=== PATIENT | female | born 1975 | race Caucasian/White ===

== ENCOUNTER 2022-02-12 03:42 | Observation (INO) ==
[2022-02-12] MEDS ORDERED: ONDANSETRON INJ 2 MG/ML 2 ML VIAL IV STA (04:11)
[2022-02-12] MEDS ORDERED: SODIUM CHLORIDE 0.9% 1000ML 1,000 ML IV SCH (04:15)
[2022-02-12 04:29] LABS: Basophils # (auto) 0.04 K/uL (0-0.2); Basophils % (auto) 0.7 %; Eosinophils # (auto) 0.23 K/uL (0-0.50); Eosinophils % (auto) 4.2 %; Hematocrit (blood only) 38.4 % (34.1-44.9); Hemoglobin 12.7 g/dl (12.0-16.0); Immature Granulocytes # (auto) 0.02 K/uL (0.00-0.02); Immature Granulocytes % (auto) 0.4 %; Lymphocytes # (auto) 0.91 K/uL (1.2-3.4); Lymphocytes % (auto) 16.5 %; Mean Corpuscular Hemoglobin 30.5 pg (25.0-34.0); Mean Corpuscular Hgb Conc 33.1 g/dL (32.0-36.0); Mean Corpuscular Volume 92.1 fL (80.0-100.0); Mean Platelet Volume 11.1 fL (9.4-12.3); Monocytes # (auto) 0.33 K/uL (0.24-0.82); Neutrophils % (auto) 72.2 %; Platelet Count 214 K/uL (130-400); RDW Coefficient of Variation 12.8 % (11.5-14.5); RDW Standard Deviation 42.9 fL (36.4-46.3); Red Blood Count 4.17 M/uL (3.93-5.22); White Blood Count 5.53 K/ul (4.8-10.8)
[2022-02-12] MEDS: MoRPHine SULFATE 4 MG/ML 1 ML CARP\\VIAL IV PRN ×3 (04:32→07:13)
[2022-02-12 04:34] LABS: Appearance Urine Clear (Clear); Bacteria Urine Automated Negative (Negative); Bilirubin Urine Negative (Negative); Blood Urine Negative (Negative); Color Urine Yellow; Epithelial Cell Urine Auto >30 /lpf (0-5); Glucose Urine UA Negative (Negative); Ketones Urine Trace (Negative); Leukocyte Esterase Urine Negative (Negative); Nitrite Urine Negative (Negative); Protein Urine 1+ (Negative); RBC Urine Automated 0-4 /hpf (0-4); Specific Gravity Urine 1.028 (1.000-1.030); Urobilinogen Urine Negative (Negative); pH Urine 6.5 (4.5-7.5)
[2022-02-12 04:41] LABS: Albumin Globulin Ratio 1.4 (0.9-2); Albumin Level 4.3 gm/dl (3.4-5.0); Bilirubin,Total 0.4 mg/dl (0.2-1.0); Calcium 9.7 mg/dl (8.5-10.1); Creatinine Clr Calc Pharmacy 156.5 ml/min; Est GFR (African American) 125.1 ml/min; Potassium 3.5 mmol/L (3.5-5.1); Total Protein 7.3 gm/dl (6.0-8.3)
[2022-02-12] MEDS ORDERED: OPTIRAY 300 500mL IV ONE (05:32)
--- NOTE | 2022-02-12 08:00 | CT Scan Report ---
ABDOMEN AND PELVIS CT WITH IV CONTRAST CT DOSE: 1519.84 mGy.cm HISTORY: Acute upper abdominal pain with nausea Upper abd pain TECHNIQUE: Multiaxial CT images of the abdomen and pelvis were performed following the IV administrat ion of 87 cc of Optiray, A dose lowering technique was utilized adhering to the principles of ALARA. COMPARISON STUDY: None. FINDINGS: Clear lung bases. Mild subsegmental bibasilar atelectasis. There is no pneumatosis or pneum operitoneum. Unremarkable spleen, and right adrenal gland. Indeterminate soft tissue attenuating 1.1 cm left adrenal gland nodule on image 143. There is an ovoid cystic lesion involving the pancreatic b susan on image 141 measuring 2.5 x 1.1 cm with upstream atrophy of the pancreatic tail. No associated p ancreatic ductal dilation. Unremarkable liver with patent portal vein. The gallbladder is distended w ith wall thickening and pericholecystic edema/trace fluid. There is a subcentimeter gallstone noted n ear the gallbladder neck. 1.3 cm dependent intraluminal structure within the gallbladder may represen t sludge versus polyp. Mild wall thickening of the proximal duodenum, likely reactive. Unremarkable kidneys. There is no hydronephrosis. Decompressed urinary bladder. Hysterectomy. Aorta a nd IVC are unremarkable. No lymphadenopathy identified. Probable tiny hiatal hernia. No bowel obstruc tion. Retained enteric contrast within the terminal ileum and proximal colon. Normal appendix. Unrema rkable soft tissues. Right paracentral disc osteophyte complex calcified disc extrusion versus seques tered disc fragment noted at the T6-T7 level resulting in at least moderate central canal stenosis. A nnular disc bulge at L4-L5 is also noted with right greater than left bilateral neural foraminal narr owing. IMPRESSION: 1. Cholelithiasis with findings suggestive of acute cholecystitis. Additionally, there is suggestion of gallbladder sludge versus polyp. 2. Mild wall thickening of the proximal duodenum is likely reactive. 3. Indeterminate 2.5 cm cystic lesion of the pancreas body with upstream atrophy of the pancreatic ta il. Correlation with a nonemergent MRI of the abdomen utilizing pancreatic protocol with and without IV contrast is needed. 4. No bowel obstruction. Normal appendix. 5. Moderate central canal stenosis at T6-T7 as above. ACT 112: Negative or not required by law. The above report was generated using voice recognition software. It may contain grammatical, syntax o r spelling errors. Electronically signed by: Regan Medrano M.D. 02/12/2022 7:58 AM
--- NOTE | 2022-02-12 08:39 | Emergency Department Note ---
History of Present Illness General Chief complaint: Vomiting Stated complaint: ABDOMINAL PAIN, VOMITING Time Seen by Provider: 02/12/22 04:03 History of Present Illness Maximum Pain Intensity: 7 This is a 46-year-old female presenting to the emergency department for evaluation of epigastric abdominal pain, nausea, and vomiting for the past day. The patient is visiting the area as her is here for work. She previously lived in this area. She believes that food may be worsening her symptoms. She does have a history of section x2. She has not had fevers or chills. No chest pain, chest tightness, shortness of breath. No lower abdominal pain. She rates the discomfort a 7/10. She has not taken anything [id number] for symptoms as she is traveling. Home Medications Medication Instructions Recorded Confirmed Type Lactobacillus 25 billion 1 cap PO 02/12/22 History cell-Bifido 25 billion [id number] capsule (Women's Probiotic) ascorbic acid (vitamin C) 1,000 mg 1 cap PO 02/12/22 History capsule,extended release biotin 10,000 mcg capsule 10,000 mcg PO 02/12/22 History cholecalciferol (vitamin D3) 125 125 mcg PO DAILY 02/12/22 02/12/22 History mcg (5,000 unit) tablet (Vitamin D3) cyanocobalamin (vitamin B-12) 2,500 mcg sublingual DAILY 02/12/22 02/12/22 History 2,500 mcg sublingual tablet (Vitamin B-12) hydrochlorothiazide 50 mg tablet 50 mg PO DAILY 02/12/22 02/12/22 History lamotrigine 100 mg tablet 100 mg PO HS 02/12/22 02/12/22 History lamotrigine 250 mg tablet,extended 250 mg PO BID 02/12/22 02/12/22 History release 24 hr nutritional supplement-fiber oral ea 02/12/22 History liquid nutritional supplement-fiber oral ea 02/12/22 History liquid omeprazole 20 mg capsule,delayed 20 mg PO DAILY 02/12/22 02/12/22 History release potassium 99 mg tablet 99 mg PO DAILY 02/12/22 02/12/22 History teriflunomide 14 mg tablet 14 mg PO DAILY 02/12/22 02/12/22 History (Aubagio) acetaminophen 325 mg capsule 650 mg PO Q6H PRN fever or pain 02/13/22 Rx #30 caps Allergies Allergy/AdvReac Type Severity Reaction Status Date / Time diclofenac Allergy Severe Seizure Verified 02/12/22 11:59 loratadine [From Claritin-D] Allergy Severe Seizure Verified 02/12/22 11:59 oxycodone [From Percocet] Allergy Severe Seizure Verified 02/12/22 12:00 pseudoephedrine Allergy Severe Seizure Verified 02/12/22 11:59 [From Claritin-D] acetaminophen [From Percocet] Allergy Verified 02/12/22 12:00 Past Med/Surg History Medical History History of epilepsy Surgical History H/O section Social History Smoking Status: Never smoker Hx Alcohol Use: No Hx Substance Use: No Preferred Language: Azeri Current Living Situation: Spouse Other Information That Helps Us Care for You: No Feels Safe at Home: Yes Safety Concerns: Feels Safe At This Time Assistive Devices: Glasses Review of Systems A total of 10 systems reviewed and were otherwise negative Physical Exam Vital Signs Vital Signs - 24 hr 02/12/22 08:52 02/12/22 10:35 02/12/22 11:51 Temperature 36.5 C Temperature Source Oral Pulse Rate [Apical] 70 67 Pulse Rate [Right Finger] 71 Pulse Rhythm [Right Finger] Regular Pulse Strength [Right Finger] Normal Respiratory Rate 18 18 18 Respiratory Effort / Characteristics Non-Labored Spontaneous Non-Labored Non-Labored Spontaneous Respiratory Depth Normal Normal Normal Respiratory Pattern Regular Blood Pressure [Left Arm] 172/86 H 166/89 H 180/80 H Blood Pressure Mean [Left Arm] 114 114 113 Blood Pressure Position [Left Arm] Sitting Pulse Oximetry 98 100 99 Oxygen Delivery Method Room Air Room Air Room Air VITALS: Vitals are noted on the nurse's note and reviewed by myself. Vital signs stable. GENERAL: Well-developed, well-nourished, white female, who is in no acute distress and resting comfortably. Patient is cooperative with the examination. HEAD: Normocephalic atraumatic. HEART: Regular rate and rhythm without murmurs gallops or rubs. LUNGS: Clear to auscultation bilaterally without wheezes, rales or rhonchi. No retractions or accessory muscle use. ABDOMEN: Positive normal bowel sounds x 4. Soft with epigastric and right upper quadrant tenderness. No rebound or guarding. No CVA tenderness. MUSCULOSKELETAL: No muscle atrophy, erythema, or edema noted. Full range of motion in all extremities. Course Administered Medications Hydromorphone HCl (Hydromorphone Inj 2 Mg/Ml Syr/Vial) 2 mg IV NOW [facility] Stop: 02/12/22 14:46 Last Admin: 02/12/22 14:40 Dose: 0.25 mg Documented By: KAYE Cefoxitin Sodium (Mefoxin) 2,000 mg in 60 mls @ 100 mls/hr IV NOW ONE Stop: 02/12/22 17:50 Last Infusion: 02/12/22 21:15 Dose: 100 mls/hr Documented By: Admin: 02/12/22 18:26 Dose: 100 mls/hr Documented By: NEGIN Lamotrigine (Lamotrigine 100 Mg Tab) 100 mg PO HS [facility] Stop: 03/14/22 20:59 Last Admin: 02/12/22 23:27 Dose: 100 mg Documented By: RAJENRDA Lamotrigine (Lamotrigine 25 Mg Tab) 50 mg PO BID [facility] Stop: 03/14/22 20:59 Last Admin: 02/12/22 23:28 Dose: Not Given Documented By: RAJENDRA Miscellaneous (Order Awaiting Action - Teriflunomide [Aubagio] 14 Mg Tablet) 1 each N/A QS [facility] Stop: 03/15/22 00:00 Last Admin: 02/13/22 01:02 Dose: Not Given Documented By: RAJENDRA Ondansetron HCl (Ondansetron Inj 2 Mg/Ml 2 Ml Vial) 4 mg IV Q4H PRN PRN Reason: Nausea And Vomiting Stop: 03/14/22 16:47 Last Admin: 02/12/22 17:08 Dose: 4 mg Documented By: NEGIN Discontinued Medications Bupivacaine HCl/Epinephrine Bitart (Bupivacaine/Epinephrine 0.25% 1:200,000 30 Ml Vial) Confirm Administered Dose 30 ml .ROUTE .STK-MED ONE Stop: 02/12/22 11:50 Last Admin: 02/12/22 13:40 Dose: 30 ml Documented By: [id number] Cefazolin Sodium (Cefazolin 3000mg/72.5 Ml Bag) Confirm Administered Dose 3,000 mg IV .STK-MED ONE Stop: 02/12/22 11:36 Last Admin: 02/12/22 12:28 Dose: 3,000 mg Documented By: [id number] Fentanyl Citrate (Fentanyl Citrate 100 Mcg/2 Ml Vial) 25 mcg IV Q5M PRN PRN Reason: PACU Use Only-Pain Stop: 02/12/22 20:49 Last Admin: 02/12/22 15:26 Dose: 25 mcg Documented By: Admin: 02/12/22 14:29 Dose: 25 mcg Documented By: Admin: 02/12/22 14:22 Dose: 25 mcg Documented By: KAYE Hydromorphone HCl (Hydromorphone Inj 2 Mg/Ml Syr/Vial) Confirm Administered Dose 2 mg .ROUTE .STK-MED ONE Stop: 02/12/22 14:37 Last Admin: 02/12/22 14:53 Dose: Not Given Documented By: KAYE Sodium Chloride (Nss 1000ml) 1,000 mls @ 999 mls/hr IV .Q1H1M TAIWO Stop: 02/12/22 05:15 Last Infusion: 02/12/22 05:38 Dose: 0 mls/hr Documented By: Admin: 02/12/22 04:37 Dose: 999 mls/hr Documented By: LORENZO Lactated Ringer's (Lr) 1,000 mls @ 100 mls/hr IV .Q10H TAIWO Stop: 03/14/22 16:47 Last Infusion: 02/13/22 07:12 Dose: 0 mls/hr Documented By: Infusion: 02/13/22 05:40 Dose: 0 mls/hr Documented By: Admin: 02/13/22 05:40 Dose: 100 mls/hr Documented By: Infusion: 02/13/22 04:26 Dose: 100 mls/hr Documented By: Admin: 02/12/22 18:26 Dose: 100 mls/hr Documented By: NEGIN Ioversol (Optiray 300 500ml) 87 ml IV ONCE ONE Stop: 02/12/22 05:33 Last Admin: 02/12/22 05:35 Dose: 87 ml Documented By: CHASIDY Morphine Sulfate (Morphine Sulfate 4 Mg/Ml 1 Ml Carp\Vial) 4 mg IV Q30M PRN PRN Reason: Pain Stop: 02/26/22 04:10 Last Admin: 02/12/22 07:13 Dose: 4 mg Documented By: Admin: 02/12/22 05:06 Dose: 4 mg Documented By: Admin: 02/12/22 04:32 Dose: 4 mg Documented By: JT Ondansetron HCl (Ondansetron Inj 2 Mg/Ml 2 Ml Vial) 4 mg IV NOW STA Stop: 02/12/22 04:12 Last Admin: 02/12/22 04:32 Dose: 4 mg Documented By: JT Ondansetron HCl (Ondansetron Inj 2 Mg/Ml 2 Ml Vial) Confirm Administered Dose 4 mg .ROUTE .STK-MED ONE Stop: 02/12/22 11:51 Last Admin: 02/12/22 11:50 Dose: 4 mg Documented By: ART Medical Decision Making Differential Diagnosis Differential diagnosis: Etiologies such as biliary colic, cholecystitis, hepatitis, pancreatitis, cardiac disease, pancreatitis, gastritis, peptic ulcer disease, appendicitis, cystitis, diverticulitis, mesenteric ischemia, inflammatory bowel disease, ileus, bowel obstruction, testicular/adnexal torsion, aortic pathology, shingles, as well as others were considered Laboratory Data Result diagrams: 02/12/22 04:05 02/12/22 04:05 Lab Results 02/12/22 02/12/22 02/12/22 Range/Units 04:05 04:05 04:05 WBC 5.53 (4.8-10.8) K/ul RBC 4.17 (3.93-5.22) M/uL Hgb 12.7 (12.0-16.0) g/dl Hct 38.4 (34.1-44.9) % MCV 92.1 (80.0-100.0) fL MCH 30.5 (25.0-34.0) pg MCHC 33.1 (32.0-36.0) g/dL RDW Std Deviation 42.9 (36.4-46.3) fL RDW Coeff of Kerry 12.8 (11.5-14.5) % Plt Count 214 (130-400) K/uL MPV 11.1 (9.4-12.3) fL Immature Gran % (Auto) 0.4 % Neut % (Auto) 72.2 % Lymph % (Auto) 16.5 % Luce % (Auto) 6.0 % Eos % (Auto) 4.2 % Baso % (Auto) 0.7 % Neut # (Auto) 4.00 (1.4-6.5) K/uL Lymph # (Auto) 0.91 L (1.2-3.4) K/uL Luce # (Auto) 0.33 (0.24-0.82) K/uL Eos # (Auto) 0.23 (0-0.50) K/uL Baso # (Auto) 0.04 (0-0.2) K/uL Immature Gran # (Auto) 0.02 (0.00-0.02) K/uL Sodium 140 (136-145) mmol/L Potassium 3.5 (3.5-5.1) mmol/L Chloride 102 (98-107) mmol/L Carbon Dioxide 30 (21-32) mmol/L Anion Gap 8 (3-11) BUN 14 (6-23) mg/dl Creatinine 0.61 (0.6-1.2) mg/dl Est Cr Clr Drug Dosing 156.5 ml/min Est GFR ( Amer) 125.1 ml/min Est GFR (Non-Af Amer) 108.0 ml/min BUN/Creatinine Ratio 23.0 H (10-20) Glucose 134 H (70-99(Fasting)) mg/dl Calcium 9.7 (8.5-10.1) mg/dl Total Bilirubin 0.4 (0.2-1.0) mg/dl AST 17 (13-39) U/L ALT 15 (7-52) U/L Alkaline Phosphatase 79 (34-104) U/L Total Protein 7.3 (6.0-8.3) gm/dl Albumin 4.3 (3.4-5.0) gm/dl Globulin 3.0 (2.5-4.0) gm/dl Albumin/Globulin Ratio 1.4 (0.9-2) Lipase 7 L (11-82) U/L HCG, Qual (Negative) Urine Color Yellow Urine Appearance Clear (Clear) Urine pH 6.5 (4.5-7.5) Ur Specific [place] 1.028 (1.000-1.030) Urine Protein 1+ H (Negative) Urine Glucose (UA) Negative (Negative) Urine Ketones Trace H (Negative) Urine Blood Negative (Negative) Urine Nitrite Negative (Negative) Urine Bilirubin Negative (Negative) Urine Urobilinogen Negative (Negative) Ur Leukocyte Esterase Negative (Negative) Urine WBC (Auto) 1-5 (0-5) /hpf Urine RBC (Auto) 0-4 (0-4) /hpf U Hyaline Cast (Auto) 5-10 H (0-5) /lpf U Epithel Cells (Auto) >30 H (0-5) /lpf Urine Bacteria (Auto) Negative (Negative) SARS-CoV-2, RNA, NAAT (NEGATIVE) 02/12/22 02/12/22 Range/Units 08:11 11:13 WBC (4.8-10.8) K/ul RBC (3.93-5.22) M/uL Hgb (12.0-16.0) g/dl Hct (34.1-44.9) % MCV (80.0-100.0) fL MCH (25.0-34.0) pg MCHC (32.0-36.0) g/dL RDW Std Deviation (36.4-46.3) fL RDW Coeff of Kerry (11.5-14.5) % Plt Count (130-400) K/uL MPV (9.4-12.3) fL Immature Gran % (Auto) % Neut % (Auto) % Lymph % (Auto) % Luce % (Auto) % Eos % (Auto) % Baso % (Auto) % Neut # (Auto) (1.4-6.5) K/uL Lymph # (Auto) (1.2-3.4) K/uL Luce # (Auto) (0.24-0.82) K/uL Eos # (Auto) (0-0.50) K/uL Baso # (Auto) (0-0.2) K/uL Immature Gran # (Auto) (0.00-0.02) K/uL Sodium (136-145) mmol/L Potassium (3.5-5.1) mmol/L Chloride (98-107) mmol/L Carbon Dioxide (21-32) mmol/L Anion Gap (3-11) BUN (6-23) mg/dl Creatinine (0.6-1.2) mg/dl Est Cr Clr Drug Dosing ml/min Est GFR ( Amer) ml/min Est GFR (Non-Af Amer) ml/min BUN/Creatinine Ratio (10-20) Glucose (70-99(Fasting)) mg/dl Calcium (8.5-10.1) mg/dl Total Bilirubin (0.2-1.0) mg/dl AST (13-39) U/L ALT (7-52) U/L Alkaline Phosphatase (34-104) U/L Total Protein (6.0-8.3) gm/dl Albumin (3.4-5.0) gm/dl Globulin (2.5-4.0) gm/dl Albumin/Globulin Ratio (0.9-2) Lipase (11-82) U/L HCG, Qual Negative (Negative) Urine Color Urine Appearance (Clear) Urine pH (4.5-7.5) Ur Specific [place] (1.000-1.030) Urine Protein (Negative) Urine Glucose (UA) (Negative) Urine Ketones (Negative) Urine Blood (Negative) Urine Nitrite (Negative) Urine Bilirubin (Negative) Urine Urobilinogen (Negative) Ur Leukocyte Esterase (Negative) Urine WBC (Auto) (0-5) /hpf Urine RBC (Auto) (0-4) /hpf U Hyaline Cast (Auto) (0-5) /lpf U Epithel Cells (Auto) (0-5) /lpf Urine Bacteria (Auto) (Negative) SARS-CoV-2, RNA, NAAT NEGATIVE (NEGATIVE) Imaging Data Radiologist's Impression: Abdomen/Pelvis CT 02/12/22 04:[address] WITH IV CONTRAST CT DOSE: 1519.84 mGy.cm HISTORY: Acute upper abdominal pain with nausea Upper abd pain TECHNIQUE: Multiaxial CT images of the abdomen and pelvis were performed follow ing the IV administration of 87 cc of Optiray, A dose lowering technique was utilized adhering to the principles of ALARA. COMPARISON STUDY: None. FINDINGS: Clear lung bases. Mild subsegmental bibasilar atelectasis. There is no pneumatosis or pneumoperitoneum. Unremarkable spleen, and right adrenal gland. Indeterminate soft tissue attenuating 1.1 cm left adrenal gland nodule on image 143. There is an ovoid cystic lesion involving the pancreatic body on image 141 measuring 2.5 x 1.1 cm with upstream atrophy of the pancreatic tail. No associat ed pancreatic ductal dilation. Unremarkable liver with patent portal vein. The gallbladder is distended with wall thickening and pericholecystic edema/trace fluid. There is a subcentimeter gallstone noted near the gallbladder neck. 1.3 cm dependent intraluminal structure within the gallbladder may represent sludge versus polyp. Mild wall thickening of the proximal duodenum, likely reactive. Unremarkable kidneys. There is no hydronephrosis. Decompressed urinary bladder. Hysterectomy. Aorta and IVC are unremarkable. No lymphadenopathy identified. Probable tiny hiatal hernia. No bowel obstruction. Retained enteric contrast within the terminal ileum and proximal colon. Normal appendix. Unremarkable soft tissues. Right paracentral disc osteophyte complex calcified disc extrusion versus sequestered disc fragment noted at the T6-T7 level resulting in at least moderate central canal stenosis. Annular disc bulge at L4-L5 is also noted with right greater than left bilateral neural foraminal narrowing. IMPRESSION: 1. Cholelithiasis with findings suggestive of acute cholecystitis. Additionally, there is suggestion of gallbladder sludge versus polyp. 2. Mild wall thickening of the proximal duodenum is likely reactive. 3. Indeterminate 2.5 cm cystic lesion of the pancreas body with upstream atrophy of the pancreatic tail. Correlation with a nonemergent MRI of the abdomen utilizing pancreatic protocol with and without IV contrast is needed. 4. No bowel obstruction. Normal appendix. 5. Moderate central canal stenosis at T6-T7 as above. ACT 112: Negative or not required by law. The above report was generated using voice recognition software. It may contain grammatical, syntax or spelling errors. Electronically signed by: Regan Medrano M.D. 02/12/2022 7:58 AM MDM Narrative Physical exam and history were performed. Nursing notes, EMR, and Medication List were personally reviewed. Patient appears to have upper abdominal pain bringing her to the ER. She does have some reproducible tenderness, but does not appear toxic. IV access was established and labs are obtained. She was given IV morphine and IV Zofran for comfort. She was hydrated with normal saline. She was sent to CT scan for evaluation. Patient's blood work is as above and was reviewed. She does not have a significantly elevated white blood cell count, gross anemia, bandemia, or significant electrolyte imbalance. Lipase and transaminases are not diagnostic. CT scan is as above and was reviewed. Patient does appear to have acute cholecystitis on CT scan, which would correlate with her symptoms. COVID was performed and negative. I did reach out to the surgical team who will evaluate the patient here in the ER. Please see their dictation for further patient course, plan, disposition. The chart was completed utilizing [employer] Voice Recognition Software. Grammatical errors, random word insertions, pronoun errors, and incomplete sentences are an occasional consequence of this system due to software limitations, ambient noise, and hardware issues. Any formal questions or concern s about the content, text, or information contained within the body of this dictation should be directly addressed to the provider for clarification. . Impression & Plan Acute cholecystitis, Acute upper abdominal pain Discharge Plan Visit Data Chief Complaint: Vomiting Stated Complaint: ABDOMINAL PAIN, VOMITING ED Provider: Gogo Hampton ED Midlevel Provider: Stanley Rivera Discharge Problem: Acute cholecystitis, Acute upper abdominal pain Patient Disposition: Admitted As Inpatient Condition: Good Discharge Instructions Interventions: ED Discharge Assessment Last Done: 02/12/22 11:15
--- NOTE | 2022-02-12 09:44 | History & Physical Report ---
Date of Service February 12, 2022 Assessment & Plan (1) Acute cholecystitis: Plan: Labs normal but stone in neck of gallbladder with wall thickening and edema. Will plan for laparoscopic cholecystectomy today. History of Present Illness Primary Care Provider: NO PCP 46 y/o female with RUQ pain, N/V that began last evening after eating fettuccine christian. Had persistent vomiting overnight. No previous biliary symptoms. Past Med/Surg History Medical History History of epilepsy Surgical History H/O section Social History Smoking Status: Never smoker Preferred Language: Belarusian Feels Safe at Home: Yes Review of Systems Constitutional: no fever, no chills and no anorexia Gastrointestinal: + abdominal pain, + nausea and + vomiting; no bloating and no heartburn Physical Exam Constitutional: WD/WN, vitals as above Eyes: PERRL, conjunctivae normal, anicteric sclerae ENMT: external ear and nose normal, oropharynx normal Neck: normal visual inspection Respiratory: normal respiratory effort, lungs clear to auscultation Cardiovascular: RRR, no murmur, no edema Gastrointestinal (Abdomen): Inspection/Auscultation: abdomen not distended Percussion/Palpation: + abdomen tender (RUQ) and abdomen soft; no guarding Musculoskeletal: no cyanosis or clubbing, extremities motor strength 5/5 Skin: no rashes, warm and dry Neurologic: PERRL, EOMI, accommodation nl, no face palsy, no dysarthria Psychiatric: A+Ox3, euthymic affect Results & Data Results & Data ([facility]) Vital Signs (Past 12 Hours) Vital Signs Temp Pulse Pulse Resp BP BP Pulse Ox 02/12/22 08:52 70 18 172/86 H 98 02/12/22 07:09 70 18 168/89 H 99 02/12/22 05:25 72 16 165/92 H 98 02/12/22 03:45 36.6 C 74 18 188/89 H 99 O2 Del Method 02/12/22 08:52 Room Air 08/26/22 07:09 Room Air 02/12/22 05:25 Room Air 02/12/22 03:45 Room Air Diagnostic Findings ABDOMEN AND PELVIS CT WITH IV CONTRAST CT DOSE: 1519.84 mGy.cm HISTORY: Acute upper abdominal pain with nausea Upper abd pain TECHNIQUE: Multiaxial CT images of the abdomen and pelvis were performed following the IV administration of 87 cc of Optiray, A dose lowering technique was utilized adhering to the principles of ALARA. COMPARISON STUDY: None. FINDINGS: Clear lung bases. Mild subsegmental bibasilar atelectasis. There is no pneumatosis or pneumoperitoneum. Unremarkable spleen, and right adrenal gland. Indeterminate soft tissue attenuating 1.1 cm left adrenal gland nodule on image 143. There is an ovoid cystic lesion involving the pancreatic body on image 141 measuring 2.5 x 1.1 cm with upstream atrophy of the pancreatic tail. No associ ated pancreatic ductal dilation. Unremarkable liver with patent portal vein. The gallbladder is distended with wall thickening and pericholecystic edema/trace fluid. There is a subcentimeter gallstone noted near the gallbladder neck. 1.3 cm dependent intraluminal structure within the gallbladder may represent sludge versus polyp. Mild wall thickening of the proximal duodenum, likely reactive. Unremarkable kidneys. There is no hydronephrosis. Decompressed urinary bladder. Hysterectomy. Aorta and IVC are unremarkable. No lymphadenopathy identified. Probable tiny hiatal hernia. No bowel obstruction. Retained enteric contrast within the terminal ileum and proximal colon. Normal appendix. Unremarkable soft tissues. Right paracentral disc osteophyte complex calcified disc extrusion versus sequestered disc fragment noted at the T6-T7 level resulting in at least moderate central canal stenosis. Annular disc bulge at L4-L5 is also noted with right greater than left bilateral neural foraminal narrowing. IMPRESSION: 1. Cholelithiasis with findings suggestive of acute cholecystitis. Additionally, there is suggestion of gallbladder sludge versus polyp. 2. Mild wall thickening of the proximal duodenum is likely reactive. 3. Indeterminate 2.5 cm cystic lesion of the pancreas body with upstream atrophy of the pancreatic tail. Correlation with a nonemergent MRI of the abdomen utilizing pancreatic protocol with and without IV contrast is needed. 4. No bowel obstruction. Normal appendix. 5. Moderate central canal stenosis at T6-T7 as above. Supervising Physician Co-Signing Physician Notes I personally saw and evaluated the patient with Ajith Mack PA-C and agree with the assessment and plan. 46-year-old female with acute cholecystitis CT images and results personally viewed by me she has inflammation of the gallbladder with distention and layering sludge consistent with cholecystitis Keep her n.p.o. give IV antibiotics We will plan on laparoscopic cholecystectomy, possible open today Consent was obtained, risk discussed including bleeding, infection, bile leak, ductal injury PG Care Time/CCT Total # of Minutes Spent Total Time Spent with Patient: Total time spent is greater than 50% in coordination of care (as documented) at patient's floor/unit and/or counseling patient: Coding Level of Care Code 79713 Initial Inpt Care Lvl 3 Diagnoses Acute cholecystitis K81.0
[2022-02-12] MEDS ORDERED: ceFAZolin 3000MG/72.5 ML BAG IV ONE (11:35)
[2022-02-12] MEDS ORDERED: BUPIVACAINE/EPINEPHRINE 0.25% 1:200,000 30 ML VIAL ONE (11:49)
[2022-02-12 11:50] LABS: Pregnancy Test, Serum Negative (Negative)
[2022-02-12] MEDS ORDERED: ONDANSETRON INJ 2 MG/ML 2 ML VIAL ONE (11:50)
[2022-02-12] MEDS ORDERED: ACETAMINOPHEN 1000 MG/100 ML IV IV ONE (11:57)
[2022-02-12] MEDS ORDERED: PROPOFOL IV EMULSION 10 MG/ML 20 ML VIAL IV ONE (12:00)
[2022-02-12] MEDS ORDERED: LIDOCAINE 2% 2 ML VIAL/AMP(20MG/ML) INFIL ONE (12:00)
[2022-02-12] MEDS ORDERED: ROCURONIUM BROMIDE 10 MG/ML 5 ML VIAL IV ONE (12:00)
[2022-02-12] MEDS ORDERED: fentaNYL citrate 100 MCG/2 ML VIAL ONE ×2 (12:00→13:00)
[2022-02-12] MEDS ORDERED: MIDAZOLAM HCL 1 MG/ML 2ML VIAL ONE (12:00)
--- NOTE | 2022-02-12 12:30 | Anesthesiology Consultation ---
Date of Service February 12, 2022 Assessment & Plan Chart Review Chart Review: Patient NOT seen in Pre Admission Testing Consults Requested none ASA [id number] Proposed Anesthesia Anesthesia Type: General Risk / Benefits Reviewed With: PT / POA / Parent / Guardian, Accepts Plan and Informed Consent Obtained History Surgery Operation Date: 02/12/22 11:20 Proposed Procedures p Laparoscopic Cholecystectomy - Afshin Vizcarra, DO Height/Weight Height: 5 ft 8 in Weight: 121.5 kg Allergies Allergy/AdvReac Type Severity Reaction Status Date / Time diclofenac Allergy Severe Seizure Verified 02/12/22 11:59 loratadine [From Claritin-D] Allergy Severe Seizure Verified 02/12/22 11:59 oxycodone [From Percocet] Allergy Severe Seizure Verified 02/12/22 12:00 pseudoephedrine Allergy Severe Seizure Verified 02/12/22 11:59 [From Claritin-D] acetaminophen [From Percocet] Allergy Verified 02/12/22 12:00 Medications Home Medications Medication Instructions Recorded Confirmed Last Taken Lactobacillus 25 billion 1 cap PO 02/12/22 02/11/22 08:00 cell-Bifido 25 billion [id number] capsule (Women's Probiotic) ascorbic acid (vitamin C) 1,000 mg 1 cap PO 02/12/22 02/11/22 08:00 capsule,extended release biotin 10,000 mcg capsule 10,000 mcg PO 02/12/22 02/11/22 08:00 cholecalciferol (vitamin D3) 125 125 mcg PO DAILY 02/12/22 02/12/22 02/11/22 08:00 mcg (5,000 unit) tablet (Vitamin D3) cyanocobalamin (vitamin B-12) 2,500 mcg sublingual DAILY 02/12/22 02/12/22 02/11/22 08:00 2,500 mcg sublingual tablet (Vitamin B-12) hydrochlorothiazide 50 mg tablet 50 mg PO DAILY 02/12/22 02/12/22 02/11/22 08:00 lamotrigine 100 mg tablet 100 mg PO HS 02/12/22 02/12/22 02/11/22 22:00 lamotrigine 250 mg tablet,extended 250 mg PO BID 02/12/22 02/12/22 02/12/22 08:00 release 24 hr nutritional supplement-fiber oral ea 02/12/22 02/11/22 liquid nutritional supplement-fiber oral ea 02/12/22 02/11/22 liquid omeprazole 20 mg capsule,delayed 20 mg PO DAILY 02/12/22 02/12/22 02/11/22 08:00 release potassium 99 mg tablet 99 mg PO DAILY 02/12/22 02/12/22 02/11/22 15:00 teriflunomide 14 mg tablet 14 mg PO DAILY 02/12/22 02/12/22 02/09/22 ([facility]) Active Medications Generic Name Dose Route Start Last Admin Trade Name Fresantino PRN Reason Stop Dose Admin Morphine Sulfate 4 mg 02/12/22 04:11 02/12/22 07:13 Morphine Sulfate 4 Mg/Ml 1 Ml Carp\Vial IV 02/26/22 04:10 4 mg Q30M PRN Administration Pain NPO Date Last Intake of Fluids: 02/11/22 Time Last Intake of Fluids: 19:30 Date Last Intake of Solids: 02/11/22 Time Last Intake of Solids: 19:30 Past Medical History Medical History History of epilepsy Exercise / Class Metabolic Activity II 4-5 Yardwork/Stairs/Walk up hill Past Surgical History Surgical History H/O section Past Anesthesia History No Hx of Anesthesia Complications and No Family Hx of Anesthesia Complications History of PONV No Hx of PONV and No Hx of Motion Sickness Social History Smoking Status: Never smoker Physical Exam Vital Signs Last Vital Signs Temp 36.5 C 02/12/22 11:51 Pulse 71 02/12/22 11:51 Resp 18 02/12/22 11:51 BP 180/80 H 02/12/22 11:51 Pulse Ox 99 02/12/22 11:51 O2 Del Method 02/12/22 11:51 Constitutional + morbidly obese ENMT Mouth: no dentition abnormality Thyromental Distance: < 3.5 Finger Breadths Mallampati Class: II Neck normal visual inspection and trachea midline; neck extension not limited Respiratory normal respiratory effort Auscultation: lungs clear to auscultation bilaterally Cardiovascular Rate/Rhythm: regular rate and regular rhythm Heart Sounds: no murmur Vessels: no carotid bruit Musculoskeletal Spine: normal cervical ROM Extremities: extremities normal to inspection; full ROM of extremities Neurologic moves all extremities Motor/Sensory: no sensory deficit Psychiatric Orientation: alert and oriented x 3 Testing Laboratory Results 02/12/22 04:05 02/12/22 04:05 Urine Color Yellow 02/12/22 04:05 Urine Appearance Clear (Clear) 02/12/22 04:05 Urine pH 6.5 (4.5-7.5) 02/12/22 04:05 Ur Specific [place] 1.028 (1.000-1.030) 02/12/22 04:05 Urine Protein 1+ (Negative) H 02/12/22 04:05 Urine Glucose (UA) Negative (Negative) 02/12/22 04:05 Urine Ketones Trace (Negative) H 02/12/22 04:05 Urine Nitrite Negative (Negative) 02/12/22 04:05 Ur Leukocyte Esterase Negative (Negative) 02/12/22 04:05 Urine WBC (Auto) 1-5 /hpf (0-5) 02/12/22 04:05 Urine RBC (Auto) 0-4 /hpf (0-4) 02/12/22 04:05 U Hyaline Cast (Auto) 5-10 /lpf (0-5) H 02/12/22 04:05 U Epithel Cells (Auto) >30 /lpf (0-5) H 02/12/22 04:05 Urine Bacteria (Auto) Negative (Negative) 02/12/22 04:05
[2022-02-12] MEDS ORDERED: NALOXONE HCL 0.4 MG/1 ML VIAL/CARP IV PRN (12:48)
[2022-02-12] MEDS ORDERED: ONDANSETRON INJ 2 MG/ML 2 ML VIAL IV PRN ×2 (12:48→16:48)
[2022-02-12] MEDS ORDERED: LABETALOL HCL IV 5 MG/ML 20ML IV PRN (12:48)
[2022-02-12] MEDS ORDERED: PROMETHAZINE HCL 12.5 MG in SODIUM CHLORIDE 0.9% 50 ML IV PRN (12:48)
[2022-02-12] MEDS ORDERED: FLUMAZENIL 0.1 MG/1 ML 10 ML VIAL IV PRN (12:48)
[2022-02-12] MEDS ORDERED: ATROPINE SULFATE 0.1 MG/ML 10ML SYR IV PRN (12:48)
[2022-02-12] MEDS ORDERED: SUGAMMADEX SODIUM 200 MG/2 ML VIAL IV ONE (13:35)
--- NOTE | 2022-02-12 13:43 | Post Operative Brief Note ---
PG Immediate Post Op with CF Date of Surgery February 12, 2022 Pre & Post Diagnosis Operation Date: 02/12/22 11:20 Pre-Op Diagnosis: acute cholecystitis Post-Op Diagnosis: acute cholecystitis I identified the patient and participated in the time-out.: Yes Procedure Operation Date: 02/12/22 11:20 Actual Procedures p Laparoscopic Cholecystectomy(Not Applicable) - Afshin Vizcarra DO Surgeon Afshin Vizcarra DO Computer Systems Auditor Ajith Mack PA-C Estimated Blood Loss 20 Findings See Below Acutely inflamed edematous gallbladder consistent with acute cholecystitis Specimens Specimen Description: A. gallbladder Anesthesia Type General Complications none Disposition Disposition: Recovery Room
--- NOTE | 2022-02-12 13:46 | Operative Report ---
PG Post Operative Report Pre & Post Diagnosis Operation Date: 02/12/22 11:20 Pre-Op Diagnosis: acute cholecystitis Post-Op Diagnosis: acute cholecystitis I identified the patient and participated in the time-out.: Yes Procedure Operation Date: 02/12/22 11:20 Actual Procedures p Laparoscopic Cholecystectomy(Not Applicable) - Afshin Vizcarra DO Surgeon Afshin Vizcarra DO Medical Officer Psychiatry Ajith Mack PA-C Estimated Blood Loss 20 Findings See Below Acutely inflamed edematous gallbladder consistent with acute cholecystitis Fluids see anesthesia record Specimens Gallbladder to pathology Drains None Anesthesia Type General Complications none Disposition Disposition: Recovery Room Indications 46-year-old female with acute cholecystitis Description of Procedure The patient was brought to the operating room and placed in the supine position with both arms extended. At this time she underwent general endotracheal anesthesia without any problems. She was given appropriate pre-operative antibiotics. Her abdomen prepped and draped in the usual sterile fashion. A timeout was called, the procedure was verified as Laparoscopic cholecystectomy, possible open, possible intra-operative cholangiogram. Surgical, nursing and anesthesia teams agreed and the procedure was begun. After injection of 0.25% Marcaine with epinephrine, a supraumbilical transverse incision was made and carried down to the fascia using S-retractors. The abdominal wall was then elevated with towel clamps and abdomen entered using the Veress needle confirming position using the saline drop test. Pneumoperitoneum was established. 5mm trocar was placed. Laparoscope was introduced. No injury from entry into the abdomen was visualized after inspection of the abdomen. Three further ports were placed under direct visualization. One 11mm in the subxiphoid region and two 5mm in the RUQ. At this time the abdomen was inspected and the gallbladder identified. The gallbladder itself was cutely inflamed, edematous and distended. We needle decompressed the gallbladder the gallbladder in order to better manipulate it during the surgery. At this time the fundus was grasped and retracted cephalad. The gallbladder infundibulum was then grasped and retracted laterally. Dense omental adhesions were lysed using a combination of sharp and blunt dissection. The cystic duct and cystic artery were then identified and skeletonized. The critical view of safety was obtained. They were both then clipped twice proximally and once distally and then divided using scissors. The gallbladder was then taken off of the liver bed using electrocautery and placed in an endocatch bag and removed from the subxiphoid port. The liver bed was then inspected and no bile leak or bleeding was evident. The subxiphoid port was then closed using 0-Vicryl using the suture passer. The trocars were then removed under direct visualization and no bleeding was present. Abdomen was desufflated. The skin was then closed using 4-0 Monocryl in a subcuticular fashion. Surgical glue was applied. Needle and sponge counts were correct x 2. At this time the patient was awoken from anesthesia and extubated having remained stable throughout the entire case. The patient was then transported to PACU in stable condition. The physician hospital medical assistant was present scrubbed for the entire case. He was essential in positioning, prepping and draping the patient, driving the laparoscope, retraction exposure, closure of the incisions and placement of the dressings. I attest to the content of the Intraoperative Record and any orders documented therein. Any exceptions are noted below.
[2022-02-12] MEDS ORDERED: LABETALOL HCL IV 5 MG/ML 20ML IV ONE (14:09)
[2022-02-12] MEDS: fentaNYL citrate 100 MCG/2 ML VIAL IV PRN ×3 (14:22→15:26)
[2022-02-12] MEDS ORDERED: HYDROmorphone INJ 2 MG/ML SYR/VIAL ONE (14:36)
[2022-02-12] MEDS ORDERED: HYDROmorphone INJ 2 MG/ML SYR/VIAL IV STA (14:45)
--- NOTE | 2022-02-12 15:07 | Anesthesiology Progress Note ---
Date of Service February 12, 2022 Anesthesia Post Procedure Vital Signs Vital Signs: Temp Pulse Pulse Pulse Resp BP BP 02/12/22 15:00 67 20 152/86 H 02/12/22 14:50 63 20 161/72 H 02/12/22 14:40 77 20 147/80 H 02/12/22 14:30 63 20 149/88 H 02/12/22 14:20 70 20 168/86 H 02/12/22 14:10 73 20 153/85 H 02/12/22 14:03 36.2 C L 68 19 154/90 H 02/12/22 11:51 36.5 C 71 18 180/80 H 02/12/22 10:35 67 18 166/89 H 02/12/22 08:52 70 18 172/86 H 02/12/22 07:09 70 18 168/89 H 02/12/22 05:25 72 16 165/92 H 02/12/22 03:45 36.6 C 74 18 188/89 H Pulse Ox O2 Del Method O2 Flow Rate 02/12/22 15:00 99 Nasal Cannula 2 02/12/22 14:50 100 Nasal Cannula 2 02/12/22 14:40 95 Room Air 02/12/22 14:30 98 Oxymask 4 02/12/22 14:20 100 Oxymask 9 02/12/22 14:10 99 Oxymask 9 02/12/22 14:03 94 Oxymask 9 02/12/22 11:51 99 Room Air 02/12/22 10:35 100 Room Air 02/12/22 08:52 98 Room Air 02/12/22 07:09 99 Room Air 02/12/22 05:25 98 Room Air 02/12/22 03:45 99 Room Air Pain Intensity Abdomen: Pain Intensity: 4 Transfer of Care Handoff Completed per policy Notes Mental Status: alert / awake / arousable Patient Amnestic to Procedure: Yes Nausea / Vomiting: adequately controlled Pain: adequately controlled Airway Patency, RR, SpO2: stable & adequate BP & HR: stable & adequate Hydration State: stable & adequate Anesthetic Complications: no major complications apparent
[2022-02-12] MEDS ORDERED: MoRPHine SULFATE 2 MG/ML CARP IV PRN (16:48)
[2022-02-12] MEDS ORDERED: MoRPHine SULFATE 4 MG/ML 1 ML CARP\\VIAL IV PRN (16:48)
[2022-02-12] MEDS ORDERED: IBUPROFEN 600 MG TAB PO PRN (16:48)
[2022-02-12] MEDS ORDERED: cefOXitin 2,000 MG/60 ML BAG IV ONE (17:15)
[2022-02-12] MEDS: LACTATED RINGER'S 1,000 ML IV SCH (18:26)
[2022-02-12] MEDS ORDERED: lamoTRIgine 100 MG TAB PO SCH ×2 (21:00)
[2022-02-12] MEDS: lamoTRIgine 25 MG TAB PO SCH (23:28)
[2022-02-13] MEDS: [UNRECOGNIZED DRUG - REMARK] SCH ×2 (01:02→09:27)
[2022-02-13] MEDS: LACTATED RINGER'S 1,000 ML IV SCH (05:40)
--- NOTE | 2022-02-13 05:53 | Surgery Progress Note ---
Date of Service February 13, 2022 Assessment & Plan (1) Acute cholecystitis: Plan: Status post laparoscopic cholecystectomy on 02/12/2022 (postop day #1) Continue analgesics Continue antiemetics We will DC IV fluids We will consider advancing diet further this morning Continue cefoxitin while in hospital Check a.m. labs once available Likely home if advancement of diet tolerated Admission and Anticipated Discharge Date Admission Date: February 12, 2022 Supervising Physician Co-Signing Physician Notes I personally saw and evaluated the patient with Luis Manuel Russo PA-C and agree with the assessment and plan. 46-year-old female postoperative day 1 laparoscopic cholecystectomy for acute cholecystitis Advance diet as tolerated Perioperative antibiotics while in the hospital Encourage ambulation and incentive spirometry If she tolerates her breakfast, she is stable for discharge home today Subjective Patient is resting comfortably in bed. She denies any BM or flatus since surgery but she is tolerating liquids without any nausea or vomiting. She notes her postoperative pain is well controlled. She denies any shortness of breath. She denies any fevers, shakes, chills. Physical Exam Gastrointestinal (Abdomen): Abdomen is soft, nonrigid, nondistended. Bowel sounds are present. Surgical incisions are all clean, dry, intact. There is minimal pain with palpation near her surgical incisions. Results & Data ([facility]) Vital Signs (Past 12 Hours) Vital Signs Temp Pulse Resp BP Pulse Ox O2 Del Method 02/13/22 03:33 36.7 C 74 16 135/79 94 Room Air 02/12/22 23:55 36.9 C 64 16 166/82 H 95 Room Air 02/12/22 20:35 36.9 C 66 16 153/84 H 96 Room Air 02/12/22 18:26 36.7 C 61 18 153/93 H 97 Room Air PG Care Time/CCT Total # of Minutes Spent Total Time Spent with Patient: Total time spent is greater than 50% in coordination of care (as documented) at patient's floor/unit and/or counseling patient: Coding Level of Care Code None Diagnoses Acute cholecystitis K81.0
[2022-02-13 08:09] LABS: Basophils # (auto) 0.01 K/uL (0-0.2); Basophils % (auto) 0.1 %; Hematocrit (blood only) 34.8 % (34.1-44.9); Hemoglobin 11.6 g/dl (12.0-16.0); Immature Granulocytes # (auto) 0.02 K/uL (0.00-0.02); Immature Granulocytes % (auto) 0.3 %; Lymphocytes # (auto) 1.01 K/uL (1.2-3.4); Lymphocytes % (auto) 13.6 %; Mean Corpuscular Hemoglobin 30.4 pg (25.0-34.0); Mean Corpuscular Hgb Conc 33.3 g/dL (32.0-36.0); Mean Corpuscular Volume 91.1 fL (80.0-100.0); Mean Platelet Volume 11.5 fL (9.4-12.3); Monocytes # (auto) 0.44 K/uL (0.24-0.82); Monocytes % (auto) 5.9 %; Neutrophils # (auto) 5.95 K/uL (1.4-6.5); Neutrophils % (auto) 80.1 %; Platelet Count 215 K/uL (130-400); RDW Coefficient of Variation 12.9 % (11.5-14.5); RDW Standard Deviation 42.3 fL (36.4-46.3); Red Blood Count 3.82 M/uL (3.93-5.22); White Blood Count 7.43 K/ul (4.8-10.8)
[2022-02-13] MEDS ORDERED: PANTOprazole 40 MG TAB PO SCH (09:00)
[2022-02-13] MEDS ORDERED: lamoTRIgine 100 MG TAB PO SCH (09:00)
[2022-02-13] MEDS: lamoTRIgine 25 MG TAB PO SCH (09:29)
--- NOTE | 2022-02-23 09:55 | Discharge Summary ---
Date of Service February 13, 2022 Admission HPI Per Admitting Provider 46 y/o female with RUQ pain, N/V that began last evening after eating fettuccine christian. Had persistent vomiting overnight. No previous biliary symptoms. Principal Diagnosis Acute cholecystitis Discharge Exam Constitutional WD/WN, vitals as above Gastrointestinal (Abdomen) Inspection/Auscultation: abdomen normal to inspection and + abdominal surgical incision (dry) Percussion/Palpation: abdomen soft Discharge Data Allergies Allergy/AdvReac Type Severity Reaction Status Date / Time diclofenac Allergy Severe Seizure Verified 02/12/22 11:59 loratadine [From Claritin-D] Allergy Severe Seizure Verified 02/12/22 11:59 oxycodone [From Percocet] Allergy Severe Seizure Verified 02/12/22 12:00 pseudoephedrine Allergy Severe Seizure Verified 02/12/22 11:59 [From Claritin-D] acetaminophen [From Percocet] Allergy Verified 02/12/22 12:00 Consultations 02/12/22 08:55 Consult General Surgery Stat Procedures Performed Operation Date: 02/12/22 11:20 Actual Procedures p Laparoscopic Cholecystectomy(Not Applicable) - Afshin Vizcarra DO Ordered Studies 02/12/22 04:11 CT abd pelvis IV con only Urgent Hospital Course (1) Acute cholecystitis: 46 y/o female presented to the ER with abdominal pain. White count was normal although CT was consistent with acute cholecystitis. She was taken to the operating room for laparoscopic cholecystectomy later that afternoon and transferred to the surgical floor for overnight observation. In the morning she was able to tolerate diet and oral analgesics. She was stable for discharge home. Total Time Total Time Spent Total Time Spent (In Minutes): 15 Discharge Plan Discharge Items Patient Disposition: Home - Self-Care Reason For Visit: ABDOMINAL PAIN, VOMITING Discharge Diagnosis: Cholecystitis Condition on Discharge: Good Activity: As commented below Activity Comment: Walk daily Lifting: No more than 10 pounds Bathing: May shower/bathe in 3 days Driving/Machine Use: When cleared by your surgeon Non-emergency contact: Surgeon Call non-emergency contact if: you have any medication questions Follow-up/Referrals: Afshin Vizcarra DO [Physician] - 02/25/22 11:00 am (Call office for an appointment in 1-2 weeks) PCP,NO [Primary Care Provider] - Diet: Regular Addtl Attending Provider Instructions: Call office with questions Pending Studies at Discharge: No Stand-Alone Forms: My [facility] [place], Smoking Cessation Medications and DC Order Prescriptions: New acetaminophen 325 mg capsule 650 mg PO Q6H PRN (Reason: fever or pain) Qty: 30 0RF Continued cyanocobalamin (vitamin B-12) [Vitamin B-12] 2,500 mcg Tablet, Sublingual 2,500 mcg SUBLINGUAL DAILY hydrochlorothiazide 50 mg Tablet 50 mg PO DAILY potassium 99 mg Tablet 99 mg PO DAILY biotin 10,000 mcg Capsule 10,000 mcg PO omeprazole 20 mg Capsule,Delayed Release(Dr/Ec) 20 mg PO DAILY lamotrigine 100 mg Tablet 100 mg PO HS ascorbic acid (vitamin C) 1,000 mg Capsule, Extended Release 1 cap PO nutritional supplement-fiber Liquid nutritional supplement-fiber Liquid cholecalciferol (vitamin D3) [Vitamin D3] 125 mcg (5,000 unit) Tablet 125 mcg PO DAILY lamotrigine 250 mg Tablet Extended Release 24hr 250 mg PO BID Aubagio 14 mg Tablet 14 mg PO DAILY Women's Probiotic 25B cell-25B cell-50 mg Capsule 1 cap PO Discharge Orders: Discharge Order (Routine); Ordered 02/13/22 Ordered By: Luis Manuel lPummer/Other Patient Handouts: After Gallbladder Surgery Admission Data Admit Date/Time: 02/12/22 13:51 Attending Provider: Afshin Vizcarra Admit Provider: Afshin Vizcarra Primary Care Provider: PCP,NO Other Providers: Edson Cristobal Other Interventions: Discharge Summary Assessment (RN) Last Done: 02/13/22 10:46 Coding Level of Care Code D/C DAY MANAGEMENT <30 MINS Diagnoses Acute cholecystitis K81.0
== END 2022-02-13 11:18 | disposition home or self-care (01) ==
LOC: ED 03:42 → 3N 03:42